=== PATIENT | male | born 1955 | race African-American/Black ===

== ENCOUNTER 2017-03-07 17:49 | Emergency (ER) | payer OTHER ==
[~2017-03-07] VITALS: Ht 180.3 cm; Wt 80.5 kg
[~2017-03-07 17:49] MED LIST: CITALOPRAM HBR40 MG PO; CYCLOBENZAPRINE10 MG PO; NIFEDIPINE ER30 MG PO; NIFEDIPINE TAB 30M; PREDNISONE20 MG PO; PROAIR HFA8.5 GM IH; PROVENTIL,2.5 MG/3 M IH; RISPERDAL1 MG PO; RISPERIDONE1 MG PO; TRAZODONE HCL50 MG PO; VENTOLIN HFA18 GM IH; ZITHROMAX Z-PA250 MG PO
[2017-03-07 19:25] LABS: HEMATOCRIT 49.2 % (38.0-50.0); MCH 28.4 PG (29.0-34.0); MCHC 31.9 G/DL (30.0-36.0); MEAN PLAT.VOLUME 9.5 uM^3 (9.0-12.4); PLATELET COUNT 236 K/uL (156-360); RBC DIS.WIDTH-CV 13.2 % (11.8-14.6); RBC DIS.WIDTH-SD 43.3 % (39-53); RED BLOOD COUNT 5.53 M/uL (4.00-5.50); WHITE BLOOD COUNT 7.2 K/uL (4.1-10.2)
[2017-03-07 19:50] LABS: CHLORIDE 105 mEq/L (99-109); POTASSIUM 4.4 mEq/L (3.7-5.4); SODIUM 138 mEq/L (136-147)
[2017-03-07 19:52] LABS: GLUCOSE 83 mg/dL (70-99); TROP-I INTERPRETATION NEGATIVE; TROPONIN-I < 0.01 ng/mL (0.0-0.30)
[2017-03-07 19:53] LABS: ANION GAP 9 MEQ/L (2-14)
[2017-03-07 19:56] LABS: GFR ESTIMATE (CALCULATED) > 59 mL/min/; UREA NITROGEN (BUN) 10 mg/dL (9-23)
[2017-03-07] MEDS ORDERED: AMLODIPINE BESY10 MG PO (20:47)
[2017-03-07] MEDS ORDERED: FLUOXETINE HCL20 MG PO (20:48)
[2017-03-07] MEDS ORDERED: CLONIDINE HCL0.1 MG PO (20:48)
[2017-03-07 21:53] VITALS: BP 129/82
== END 2017-03-07 21:54 | disposition left against medical advice (07) ==
LOC: MIC 17:49 → EME 17:49 → MIC 17:49 → EME 21:54
PROVIDERS: Emergency Medicine
DX: R07.9 Chest pain, unspecified (principal); J45.909 Unspecified asthma, uncomplicated; I10 Essential (primary) hypertension; F17.200 Nicotine dependence, unspecified, uncomplicated
CPT/HCPCS: 71020; 80048; 80048 91; 83880; 84484; 85027; 93005; 99281; 99284

== ENCOUNTER 2017-10-06 17:10 | Emergency (ER) | payer OTHER ==
[~2017-10-06] VITALS: Ht 177.8 cm; Wt 92.8 kg
[~2017-10-06 17:10] MED LIST changes: +AMLODIPINE BESY10 MG PO; +CLONIDINE HCL0.1 MG PO; +FLUOXETINE HCL20 MG PO
[2017-10-06] MEDS ORDERED: VALTREX1000 MG PO (18:45)
[2017-10-06] MEDS ORDERED: MOTRIN600 MG PO (18:45)
[2017-10-06 19:44] VITALS: BP 140/97
== END 2017-10-06 19:45 ==
LOC: EME 17:10
DX: B02.9 Zoster without complications (principal); J45.909 Unspecified asthma, uncomplicated; F32.9 Major depressive disorder, single episode, unspecified; I10 Essential (primary) hypertension; F17.200 Nicotine dependence, unspecified, uncomplicated
CPT/HCPCS: 99281; 99285

== ENCOUNTER 2018-04-19 11:01 | Emergency (ER) | payer OTHER ==
[~2018-04-19] VITALS: Ht 175.3 cm; Wt 100.0 kg
[~2018-04-19 11:01] MED LIST changes: +MOTRIN600 MG PO; +VALTREX1000 MG PO
[2018-04-19 11:34] LABS: BASOPHIL (%) 0.3 % (0-1); EOSINOPHIL (%) 0.1 % (0-5); HEMATOCRIT 47.3 % (38.0-50.0); HEMOGLOBIN 15.4 G/DL (12.5-16.6); IMMATURE GRANULOCYTE (%) 0.5 % (0.0-0.7); LYMPHOCYTE (%) 9.1 % (15-42); MCHC 32.6 G/DL (30.0-36.0); MCV 89.1 FL (86-99); MONOCYTE (%) 6.4 % (3-12); MONOCYTE COUNT 0.7 K/uL (0-0.8); NEUTROPHIL (%) 83.6 % (45-76); NEUTROPHIL COUNT 9.1 K/uL (1.8-6.4); PLATELET COUNT 228 K/uL (156-360); RBC DIS.WIDTH-CV 14.1 % (11.8-14.6); RBC DIS.WIDTH-SD 45.9 % (39-53); RED BLOOD COUNT 5.31 M/uL (4.00-5.50); WHITE BLOOD COUNT 10.9 K/uL (4.1-10.2)
[2018-04-19 11:41] LABS: CHLORIDE 111 mEq/L (99-109); POTASSIUM 3.8 mEq/L (3.7-5.4); SODIUM 143 mEq/L (136-147)
[2018-04-19 11:43] LABS: GLUCOSE 171 mg/dL (70-99)
[2018-04-19 11:46] LABS: SERUM ETHYL ALCOHOL < 10 mg/dL
[2018-04-19 11:47] LABS: CREATININE 1.2 mg/dL (0.6-1.3); GFR ESTIMATE (CALCULATED) > 59 mL/min/ (58.99-99999)
[2018-04-19 11:48] LABS: UREA NITROGEN (BUN) 17 mg/dL (9-23)
[2018-04-19 12:38] LABS: AMPHETAMINE NEGATIVE (500 ng/mL); BARBITURATES NEGATIVE (200 ng/mL); BENZODIAZEPINES PRESUMPTIVE POSITIVE (150 ng/mL); BUPRENORPHINE NEGATIVE (10 ng/mL); COCAINE NEGATIVE (150 ng/mL); METHADONE NEGATIVE (200 ng/mL); METHAMPHETAMINE NEGATIVE (500 ng/mL); OPIATES (MORPHINE) NEGATIVE (100 ng/mL); OXYCODONE PRESUMPTIVE POSITIVE (100 ng/mL); PHENCYCLIDINE NEGATIVE (25 ng/mL); PROPOXYPHENE NEGATIVE (300 ng/mL); THC CANNABINOIDS NEGATIVE (50 ng/mL); TRICYCLIC ANTIDEPRESSANTS NEGATIVE (300 ng/mL)
[2018-04-19 13:16] LABS: BENZODIAZEPINES, URINE SCREEN Negative (200 ng/mL)
[2018-04-19 15:46] VITALS: BP 134/87
== END 2018-04-19 16:13 | disposition home or self-care (01) ==
LOC: EME 11:01
PROVIDERS: Emergency Medicine
DX: T40.2X1A Poisoning by other opioids, accidental (unintentional), initial encounter (principal); J45.909 Unspecified asthma, uncomplicated; I10 Essential (primary) hypertension; F32.9 Major depressive disorder, single episode, unspecified; F17.200 Nicotine dependence, unspecified, uncomplicated
CPT/HCPCS: 70450; 71045; 80048; 84999; 85025; 93005; 99281; 99285; G0480; J2310

== ENCOUNTER 2018-06-08 20:23 | Emergency (ER) | payer OTHER ==
[~2018-06-08] VITALS: Ht 175.3 cm; Wt 102.2 kg
[2018-06-08 21:28] LABS: MCH 29.9 PG (29.0-34.0); MCHC 32.6 G/DL (30.0-36.0); MCV 91.7 FL (86-99); PLATELET COUNT 254 K/uL (156-360); RBC DIS.WIDTH-CV 16.6 % (11.8-14.6); RBC DIS.WIDTH-SD 55.4 % (39-53); RED BLOOD COUNT 4.69 M/uL (4.00-5.50); WHITE BLOOD COUNT 10.9 K/uL (4.1-10.2)
[2018-06-08 21:37] LABS: CHLORIDE 111 mEq/L (99-109); POTASSIUM 3.6 mEq/L (3.7-5.4); SODIUM 143 mEq/L (136-147)
[2018-06-08 21:39] LABS: GLUCOSE 103 mg/dL (70-99)
[2018-06-08 21:43] LABS: CREATININE 0.9 mg/dL (0.6-1.3); GFR ESTIMATE (CALCULATED) > 59 mL/min/ (58.99-99999)
[2018-06-08 21:49] LABS: TROP-I INTERPRETATION NEGATIVE; TROPONIN-I 0.01 ng/mL (0.0-0.30)
[2018-06-08 21:52] LABS: ALBUMIN 3.7 g/dL (3.2-4.8)
[2018-06-08 21:55] LABS: TOTAL PROTEIN 7.3 g/dL (6.4-8.3)
[2018-06-08 21:57] LABS: TOTAL BILIRUBIN 0.8 mg/dL (0.0-1.0)
[2018-06-08 21:58] LABS: ALKALINE PHOSPHATASE 130 IU/L (3-129)
[2018-06-08 21:59] LABS: UREA NITROGEN (BUN) 7 mg/dL (9-23)
[2018-06-08 22:00] LABS: AST (GOT) 35 IU/L (2-34)
[2018-06-08 22:01] LABS: ALT (GPT) 29 IU/L (3-49); DIRECT BILIRUBIN 0.4 mg/dL (0.0-0.3)
[2018-06-08 22:02] LABS: LIPASE 24 U/L (1.0-51.0)
[2018-06-08] MEDS ORDERED: VENTOLIN HFA18 GM IH (23:03)
[2018-06-08 23:23] VITALS: BP 154/97
== END 2018-06-08 23:35 | disposition home or self-care (01) ==
LOC: EME → EDBD 20:23 → EME 23:35
PROVIDERS: Emergency Medicine
DX: R07.9 Chest pain, unspecified (principal); R10.9 Unspecified abdominal pain; R51 Headache; M79.601 Pain in right arm; M79.602 Pain in left arm; M79.604 Pain in right leg; M79.605 Pain in left leg; J98.01 Acute bronchospasm; R60.0 Localized edema; I49.8 Other specified cardiac arrhythmias; I10 Essential (primary) hypertension; F17.210 Nicotine dependence, cigarettes, uncomplicated
CPT/HCPCS: 71046; 80048; 80076; 81003; 83690; 83880; 84484; 85027; 93005; 94640; 99281; 99284